=== PATIENT | female | born 1965 | race Two or more races ===

== ENCOUNTER 2017-01-09 20:22 | Emergency (ER) | payer OTHER ==
[~2017-01-09] VITALS: Ht 157.5 cm; Wt 119.3 kg
[2017-01-09] MEDS ORDERED: INSU100V28 SQ (20:48)
[2017-01-09] MEDS ORDERED: METO-302 PO (20:48)
[2017-01-09] MEDS ORDERED: ASPI81TA31 PO (20:48)
[2017-01-09] MEDS ORDERED: HYDROMORPHONE 1 MG/1 ML DISP.SYRIN IV ONE (21:15)
[2017-01-09] MEDS ORDERED: ONDANSETRON 4 MG/2 ML VIAL IV ONE (21:15)
[2017-01-09] MEDS ORDERED: IV NORMAL SALINE 1000 ML BAG IV ONE (21:15)
[2017-01-09 21:23] LABS: BASOPHILS % (AUTO) 0.3 % (0.0-2.0); EOSINOPHILS # (AUTO) 0.1 K/uL (0.0-0.7); EOSINOPHILS % (AUTO) 1.6 % (0.0-7.0); HEMATOCRIT 38.5 % (37.0-47.0); HEMOGLOBIN 12.9 g/dL (12.0-16.0); LYMPHOCYTES # (AUTO) 2.4 K/uL (0.8-4.8); LYMPHOCYTES % (AUTO) 35.1 % (20.5-51.5); MEAN CORPUSCULAR HEMOGLOBIN 27.8 uug (27.0-31.0); MEAN CORPUSCULAR HGB CONC 34 g/dL (32.0-37.0); MEAN CORPUSCULAR VOLUME 83.1 fL (81.0-99.0); MONOCYTES # (AUTO) 0.4 K/uL (0.1-1.30); MONOCYTES % (AUTO) 6.2 % (0.0-11.0); NEUTROPHILS # (AUTO) 3.8 K/uL (1.8-8.9); NEUTROPHILS % (AUTO) 56.8 % (38.5-71.5); PLATELET COUNT (AUTO) 224 K/uL (150-450); RED BLOOD CELL COUNT(AUTO) 4.64 MIL/uL (4.20-5.40); RED CELL DISTRIBUTION WIDTH 13.1 % (11.5-14.5); WHITE BLOOD COUNT (AUTO) 6.8 K/uL (4.0-11.2)
--- NOTE | 2017-01-09 21:23 | NUR ---
Py out of unit for ct scan
[2017-01-09] MEDS ORDERED: ONDANSETRON 4 MG/2 ML VIAL ONE (21:25)
[2017-01-09] MEDS ORDERED: HYDROMORPHONE 1 MG/1 ML DISP.SYRIN ONE (21:25)
[2017-01-09 21:30] LABS: *BILIRUBIN,URIN NEGATIVE (NEGATIVE); *BLOOD, URINE Trace-intact (NEGATIVE); *CLARITY,URINE SLIGHTLY CLOUDY (CLEAR); *COLOR,URINE YELLOW (YELLOW); *KETONES,URINE NEGATIVE (NEGATIVE); *PROTEIN,URINE NEGATIVE (NEGATIVE); *UROBILINOGEN,URINE 0.2 E.U./dl (NORMAL); LEUKOCYTE ESTERASE ,URINE NEGATIVE (NEGATIVE); UGLUCOSE TRACE (NEGATIVE)
[2017-01-09 21:34] LABS: NITRITE, URINE POSITIVE (NEGATIVE)
[2017-01-09 21:40] LABS: ALBUMIN 3.6 g/dL (3.4-5.0); BILIRUBIN,DIRECT 0.1 mg/dL (0.0-0.2); BILIRUBIN,TOTAL 0.3 mg/dL (0.2-1.0); CALCIUM 8.8 mg/dL (8.5-10.1); CREATININE 0.7 mg/dL (0.6-1.3); POTASSIUM 3.6 mmol/L (3.5-5.1); TOTAL PROTEIN, SERUM 7.5 g/dL (6.4-8.2)
[2017-01-09 21:42] LABS: BACTERIA,URINE MODERATE /HPF (NONE SEEN); RBC,URINE 0-3 /HPF (0-3); SQUAMOUS EPITHELIAL CELL,UR MODERATE /HPF (NONE SEEN)
--- NOTE | 2017-01-09 21:52 | NUR ---
Pt back from ct scan with no distress noted
--- NOTE | 2017-01-09 23:20 | NUR ---
IV removed. Catheter intact and site benign. Pressure and 4x4 gauze applied to site. No bleeding noted.
[2017-01-09 23:23] VITALS: BP 135/87
--- NOTE | 2017-01-09 23:24 | NUR ---
Patient discharged to home in stable conditon with daughter taking Pt home. Written and verbal after care instructions given. Patient/family member verbalizes understanding of instructions. Walked out of ER with steady gait
== END 2017-01-09 23:24 | disposition home or self-care (01) ==
LOC: ER 20:23
DX: N39.0 Urinary tract infection, site not specified (principal); R06.02 Shortness of breath; I10 Essential (primary) hypertension; E11.9 Type 2 diabetes mellitus without complications; Z79.4 Long term (current) use of insulin; Z79.82 Long term (current) use of aspirin
CPT/HCPCS: 36415; 71010; 74176; 80048; 80076; 81001; 83690; 84484; 85025; 85730; 93005; 96361; 96374; 96375; 99285; A4663; J1170; J2405; J7030; 70030-TC

== ENCOUNTER 2017-07-22 23:05 | Inpatient (IN) | payer MEDICARE, OTHER ==
[~2017-07-22] VITALS: Ht 157.5 cm; Wt 128.8 kg
[~2017-07-22 23:05] MED LIST: ASPI81TA31 PO; INSU100V28 SQ; METO-302 PO
--- NOTE | 2017-07-22 23:12 | NUR ---
DR. ALEJANDRO AT BEDSIDE FOR MSE.
[2017-07-22] MEDS ORDERED: NITROGLYCERIN OINT 1 GM PACKET TP ONE ×2 (23:30→23:36)
[2017-07-22] MEDS ORDERED: ASPIRIN 81 MG TAB.CHEW PO ONE (23:30)
[2017-07-22] MEDS ORDERED: NITROGLYCERIN 0.4 MG/TAB BOTTLE SL ONE ×2 (23:30→23:37)
[2017-07-22] MEDS ORDERED: ASPIRIN 81 MG TAB.CHEW ONE (23:36)
[2017-07-22 23:45] LABS: BASOPHILS % (AUTO) 0.4 % (0.0-2.0); EOSINOPHILS # (AUTO) 0.1 K/uL (0.0-0.7); EOSINOPHILS % (AUTO) 1.6 % (0.0-7.0); HEMATOCRIT 35.7 % (37-47); HEMOGLOBIN 11.7 G/DL (12.0-16.0); LYMPHOCYTES # (AUTO) 2.5 K/UL (0.8-4.8); LYMPHOCYTES % (AUTO) 38.6 % (20.5-51.5); MEAN CORPUSCULAR HEMOGLOBIN 26.8 UUG (27.0-31.0); MEAN CORPUSCULAR HGB CONC 33 g/dL (32.0-37.0); MEAN CORPUSCULAR VOLUME 81.4 FL (81.0-99.0); MONOCYTES # (AUTO) 0.4 K/UL (0.1-1.30); MONOCYTES % (AUTO) 5.7 % (0.0-11.0); NEUTROPHILS # (AUTO) 3.6 K/UL (1.8-8.9); NEUTROPHILS % (AUTO) 53.7 % (38.5-71.5); PLATELET COUNT (AUTO) 207 K/UL (150-450); RED BLOOD CELL COUNT(AUTO) 4.38 MIL/UL (4.2-5.4); WHITE BLOOD COUNT (AUTO) 6.6 K/UL (4.0-11.2)
--- NOTE | 2017-07-22 23:45 | NUR ---
2347- VERBAL ORDER FROM DR. ALEJANDRO TO GIVE NITRO 0.4MG.
--- NOTE | 2017-07-22 23:50 | NUR ---
PATIENT STILL C/O CHETS PAIN, DR. ALEJANDRO NOTIFIED. OK TO GIVE 3RD NITRO, ALONG WITH DILAUDID AND ZOFRAN IVP.
[2017-07-22 23:54] LABS: CREATININE 0.7 mg/dL (0.6-1.3); POTASSIUM 3.4 mmol/L (3.5-5.1)
[2017-07-23] MEDS ORDERED: HYDROMORPHONE 1 MG/1 ML DISP.SYRIN IV ONE
[2017-07-23] MEDS ORDERED: ONDANSETRON IV *ER 4 MG/2 ML VIAL IV ONE
[2017-07-23 00:07] LABS: BILIRUBIN,DIRECT 0.1 mg/dL (0.0-0.2); BILIRUBIN,TOTAL 0.3 mg/dL (0.2-1.0)
[2017-07-23] MEDS ORDERED: HYDROMORPHONE 1 MG/1 ML DISP.SYRIN ONE (00:08)
[2017-07-23] MEDS ORDERED: ONDANSETRON 4 MG/2 ML VIAL ONE (00:08)
--- NOTE | 2017-07-23 00:18 | NUR ---
EPIC CALLED. DR. SCHMITZ WILL BE PAGED.
[2017-07-23] MEDS ORDERED: BLOO-360 IN (00:21)
--- NOTE | 2017-07-23 00:26 | NUR ---
SHOWED DAUGHTER LIST OF MEDS SHE TOOK WHEN SHE WAS PREVIOUSLY HERE AND SHE STATED PT WAS STILL ON THE SAME MEDS
[2017-07-23] MEDS ORDERED: IV NORMAL SALINE 250 ML IV ONE (01:14)
[2017-07-23] MEDS ORDERED: NORMAL SALINE FLUSH 10 ML DISP.SYRIN ONE (01:14)
[2017-07-23] MEDS ORDERED: IOHEXOL 350 100 ML INFUS..BTL ONE (01:14)
[2017-07-23] MEDS ORDERED: Z GUARD REMEDY PASTE 57 GM TUBE TOP PRN (01:15)
[2017-07-23] MEDS ORDERED: INSULIN REGULAR, HUMAN 300 UNITS/3 ML VIAL SQ PRN (01:15)
[2017-07-23] MEDS ORDERED: ACETAMINOPHEN 325 MG TABLET PO PRN (01:15)
[2017-07-23] MEDS ORDERED: HYDROCODONE/APAP 5-325MG TABLET PO PRN (01:15)
[2017-07-23] MEDS ORDERED: ONDANSETRON 4 MG/2 ML VIAL IV PRN (01:15)
[2017-07-23] MEDS ORDERED: DEXTROSE 50% 50 ML DISP.SYRIN IV PRN (01:15)
[2017-07-23] MEDS ORDERED: MORPHINE SULFATE 2 MG/1 ML DISP.SYRIN IV PRN (01:15)
[2017-07-23] MEDS ORDERED: HYDROCODONE/APAP 10-325 MG TABLET PO PRN (01:15)
[2017-07-23] MEDS ORDERED: ENOXAPARIN SODIUM 40 MG/0.4 ML DISP.SYRIN SQ SCH ×2 (01:15→21:00)
[2017-07-23] MEDS ORDERED: MAGNESIUM HYDROXIDE 30 ML LIQUID UDC PO PRN (01:15)
--- NOTE | 2017-07-23 01:37 | NUR ---
PATIENT RETURNED FROM CT-SCAN.
--- NOTE | 2017-07-23 01:37 | NUR ---
Pt. admitted to TELE , under care of Dr. SCHMITZ Belongs List completed. FAMILY AT BEDSIDE.
--- NOTE | 2017-07-23 02:35 | NUR ---
patient admitted to room 225, alert,oriented,Mauritian speaking,accompany by daughter,tele monitor shown NSR,bp stable,no sob noted, o2 sat 96% in room air,patient denies chest pain or chest discomfort at present times,continue closely monitor.
[2017-07-23 03:03] VITALS: BP 119/62
[2017-07-23] MEDS ORDERED: ENOXAPARIN SODIUM 40 MG/0.4 ML DISP.SYRIN SQ ONE (03:31)
--- NOTE | 2017-07-23 06:00 | NUR ---
PATIENT SLEPT WELL THROUGH THE NIGHT, NSR ON MONITOR, NO CHEST PAIN REPORTED.
[2017-07-23] MEDS: BLOOD SUGAR DIAGNOSTIC 1 EACH STRIP VI SCH ×4 (07:14→20:16)
--- NOTE | 2017-07-23 08:00 | NUR ---
Plan of care discussed with patient and daughter at bedside re: notifying nursing for any c/o chest pain or any discomfort, fall precaution, and pain management. Pt and daughter agreeable with plan of care.
[2017-07-23] MEDS: METOPROLOL SUCCINATE XL 25 MG TAB.SR.24H PO SCH (08:54)
[2017-07-23] MEDS: ASPIRIN 81 MG TAB.CHEW PO SCH (08:54)
[2017-07-23 11:16] VITALS: BP 117/67
--- NOTE | 2017-07-23 12:00 | NUR ---
Grocery Packer here to see pt. Dr hathaway for heart cath at [facility]. Authorization for record release received from pt. Awaiting call back from Penny from [facility] medical records.
--- NOTE | 2017-07-23 14:00 | NUR ---
Heart Cath record received and copied for time clock mechanic and placed in chart.
[2017-07-23 15:24] VITALS: BP 144/72
[2017-07-23] MEDS: INSULIN REGULAR, HUMAN 300 UNIT/3 ML VIAL SQ PRN (16:53)
[2017-07-23] MEDS ORDERED: IV NS 1000 ML 1,000 ML IV PRN (17:30)
--- NOTE | 2017-07-23 18:15 | NUR ---
Plan of care effective. Pt denies any c/o chest pain in AM shift. No fall noted and denies any c/o pain. Call light is within reach.
[2017-07-23 20:00] VITALS: BP 144/78
[2017-07-23] MEDS ORDERED: ATORVASTATIN 10 MG TABLET PO SCH (21:00)
--- NOTE | 2017-07-23 21:58 | NUR ---
PATIENT WITH FAMILY AT BEDSIDE. COMFORTABLE NO CHEST PAIN OR ANY DISCOMFORTS. NSR ON TELE. REMOVED RIGHT FOREARM IV CATH, REINSERTED OVER RIGHT HAND AND STARTED NS AT 125 ML/HR. DAUGHTER IS STAYING AT BEDSIDE KACIE, WAIVER FOR HOSPITAL VISITOR EXTENDED STAY SIGNED. OTHERWISE VITAL SIGNS ARE STABLE. CALL LIGHT WITHIN REACH.
[2017-07-24 00:20] VITALS: BP 134/70
[2017-07-24 04:00] VITALS: BP 139/69
--- NOTE | 2017-07-24 06:07 | NUR ---
SLEPT GOOD THROUGH THE NIGHT. DENIES CHEST PAIN. CALL LIGHT WITHIN REACH.
[2017-07-24] MEDS: BLOOD SUGAR DIAGNOSTIC 1 EACH STRIP VI SCH ×2 (06:44→12:16)
[2017-07-24 06:50] LABS: BASOPHILS % (AUTO) 0.4 % (0.0-2.0); EOSINOPHILS # (AUTO) 0.1 K/uL (0.0-0.7); EOSINOPHILS % (AUTO) 2.3 % (0.0-7.0); HEMATOCRIT 33.1 % (37-47); LYMPHOCYTES # (AUTO) 1.6 K/UL (0.8-4.8); LYMPHOCYTES % (AUTO) 37.8 % (20.5-51.5); MEAN CORPUSCULAR HEMOGLOBIN 27.7 UUG (27.0-31.0); MEAN CORPUSCULAR HGB CONC 33 g/dL (32.0-37.0); MEAN CORPUSCULAR VOLUME 83.3 FL (81.0-99.0); MONOCYTES # (AUTO) 0.2 K/UL (0.1-1.30); NEUTROPHILS # (AUTO) 2.4 K/UL (1.8-8.9); NEUTROPHILS % (AUTO) 54.5 % (38.5-71.5); PLATELET COUNT (AUTO) 170 K/UL (150-450); RED BLOOD CELL COUNT(AUTO) 3.98 MIL/UL (4.2-5.4); WHITE BLOOD COUNT (AUTO) 4.4 K/UL (4.0-11.2)
[2017-07-24 09:23] LABS: BILIRUBIN,TOTAL 0.4 mg/dL (0.2-1.0); CREATININE 0.6 mg/dL (0.6-1.3); MAGNESIUM 1.9 mg/dL (1.8-2.4); PHOSPHOROUS 4.2 mg/dL (2.5-4.9); POTASSIUM 3.7 mmol/L (3.5-5.1); TOTAL PROTEIN, SERUM 6.4 g/dL (6.4-8.2)
[2017-07-24] MEDS: ASPIRIN 81 MG TAB.CHEW PO SCH (09:24)
[2017-07-24] MEDS: METOPROLOL SUCCINATE XL 25 MG TAB.SR.24H PO SCH (09:24)
[2017-07-24] MEDS ORDERED: ATOR10TA PO (10:33)
[2017-07-24 11:47] VITALS: BP 131/68
[2017-07-24] MEDS: INSULIN REGULAR, HUMAN 300 UNIT/3 ML VIAL SQ PRN (12:16)
--- NOTE | 2017-07-24 12:40 | NUR ---
pt seen on rounding. pt is stable. no signs of acute distress. bp elevated and given bp meds as prescribed. pt continues to tolerate room air. blood sugar stable. pt continues to obey commands. pt is alert and oriented. pt is afebrile. complaints of no pain . will continue to reassess through shift.
--- NOTE | 2017-07-24 14:34 | NUR ---
pt dicharged at 1400. pt given discharge instructions along with discharge summary papers. pt verbalizes understanding. pt signed discharged summary. pt also given exitcare instructions such as smoking cessation chest pain and dash eating plan. pt verbalizes understanding. pt brought no belonings list. list signed and placed in chart. pt given prescriptions to be picked up in [facility] in [facility]. pt iv site removed. no signs of infection. no wound pictures were taken because there were no wounds. pt vitals stable. no sob or distress noted. pt left with daughter.
== END 2017-07-24 13:45 | disposition home or self-care (01) | DRG 438 ==
LOC: ER 23:05 → TELE 07-23 02:28
PROVIDERS: ADMIT Internal Medicine; ATTEND Internal Medicine
DX: K85.10 Biliary acute pancreatitis without necrosis or infection (principal); E43 Unspecified severe protein-calorie malnutrition; Z68.43 Body mass index [BMI] 50.0-59.9, adult; E66.01 Morbid (severe) obesity due to excess calories; E11.9 Type 2 diabetes mellitus without complications; E78.00 Pure hypercholesterolemia, unspecified; I10 Essential (primary) hypertension; Z79.4 Long term (current) use of insulin; Z90.710 Acquired absence of both cervix and uterus; Z98.84 Bariatric surgery status; R07.89 Other chest pain
CPT/HCPCS: 36415; 70030-TC; 71010; 71275; 83690; 83735; 84100; 85025; 93005; 93307; A4663; J1170; J1650; J1815; J2405; J3490; J7030; J7050; Q9967

== ENCOUNTER 2017-12-04 16:35 | Emergency (ER) | payer MEDICARE, OTHER ==
[~2017-12-04] VITALS: Ht 162.6 cm; Wt 124.7 kg
[~2017-12-04 16:35] MED LIST changes: +ATOR10TA PO; +BLOO-360 IN; -METO-302 PO; +METO-356 PO
[2017-12-04] MEDS ORDERED: ONDANSETRON ODT 4 MG TAB.RAPDIS SL ONE (19:00)
[2017-12-04] MEDS ORDERED: BENZONATATE 100 MG CAPSULE PO ONE (19:00)
[2017-12-04] MEDS ORDERED: BENZONATATE 100 MG CAPSULE ONE (19:04)
[2017-12-04] MEDS ORDERED: ONDANSETRON ODT 4 MG TAB.RAPDIS ONE (19:04)
== END 2017-12-04 19:07 | disposition home or self-care (01) ==
LOC: ER 16:37
DX: J20.8 Acute bronchitis due to other specified organisms (principal); B96.89 Other specified bacterial agents as the cause of diseases classified elsewhere; E78.00 Pure hypercholesterolemia, unspecified; I10 Essential (primary) hypertension; E11.9 Type 2 diabetes mellitus without complications; Z90.49 Acquired absence of other specified parts of digestive tract; Z90.710 Acquired absence of both cervix and uterus; Z79.82 Long term (current) use of aspirin; Z79.4 Long term (current) use of insulin; Z79.899 Other long term (current) drug therapy
CPT/HCPCS: 99283; A4663; Q0162

== ENCOUNTER 2018-08-02 22:00 | Emergency (ER) | payer MEDICARE, OTHER ==
[~2018-08-02] VITALS: Ht 165.1 cm; Wt 127.0 kg
--- NOTE | 2018-08-02 22:17 | NUR ---
PT A/OX4, RESPONSIVE TO VERBAL AND TACTILE STIMULI. PT C/O RUQ AND LUQ ABD PAIN THAT STARTED 2 DAYS AGO, NO PROVOKING FACTOR, SHARP IN QUALITY, DOES NOT RADIATE, 9/10, CONSTANT. VSS. ABD NON-DISTENDED IN APPEARANCE, ABD SOUNDS ACTIVE IN ALL QUADRANTS, SOFT ON PALPATION. SECONDARY COMPLAINT: NAUSEA PT DENIES C/P, SOB, VOMIT, DIARRHEA, DIZZINESS, HEADACHE. FAMILY AT BEDSIDE.
--- NOTE | 2018-08-02 22:27 | NUR ---
KORI HOLLAND AT BEDSIDE FOR MSE.
[2018-08-02] MEDS ORDERED: ONDANSETRON 4 MG/2 ML VIAL IV ONE (22:45)
[2018-08-02] MEDS ORDERED: MORPHINE SULFATE 2 MG/1 ML DISP.SYRIN IV ONE (22:45)
[2018-08-02] MEDS ORDERED: ONDANSETRON 4 MG/2 ML VIAL ONE (22:54)
[2018-08-02] MEDS ORDERED: MORPHINE SULFATE 4 MG/1 ML DISP.SYRIN ONE (22:54)
--- NOTE | 2018-08-02 22:57 | NUR ---
PT TAKEN TO RADIOLOGY FOR CT SCAN.
[2018-08-02 22:58] LABS: BASOPHILS % (AUTO) 0.3 % (0.0-2.0); EOSINOPHILS # (AUTO) 0.1 K/uL (0.0-0.7); EOSINOPHILS % (AUTO) 1.3 % (0.0-7.0); HEMATOCRIT 34.5 % (31.2-41.9); HEMOGLOBIN 11.4 g/dL (10.9-14.3); LYMPHOCYTES # (AUTO) 2.1 K/uL (20.0-40.0); LYMPHOCYTES % (AUTO) 30.9 % (20.5-51.5); MEAN CORPUSCULAR HEMOGLOBIN 26.8 uug (24.7-32.8); MEAN CORPUSCULAR HGB CONC 33 g/dL (32.3-35.6); MEAN CORPUSCULAR VOLUME 81.3 fL (75.5-95.3); MONOCYTES # (AUTO) 0.3 K/uL (2.0-10.0); NEUTROPHILS # (AUTO) 4.3 K/uL (1.8-8.9); NEUTROPHILS % (AUTO) 63.5 % (38.5-71.5); PLATELET COUNT (AUTO) 201 K/uL (179-408); RED BLOOD CELL COUNT(AUTO) 4.24 MIL/uL (3.63-4.92); WHITE BLOOD COUNT (AUTO) 6.7 K/uL (3.8-11.8)
[2018-08-02 23:08] LABS: CREATININE 0.8 mg/dL (0.6-1.3); POTASSIUM 3.7 mmol/L (3.5-5.1)
--- NOTE | 2018-08-02 23:11 | NUR ---
PT BACK IN DEPARTMENT FROM RADIOLOGY.
[2018-08-02 23:14] LABS: BILIRUBIN,DIRECT 0.1 mg/dL (0.0-0.2); BILIRUBIN,TOTAL 0.3 mg/dL (0.2-1.0)
[2018-08-02 23:34] LABS: *BILIRUBIN,URIN NEGATIVE (NEGATIVE); *BLOOD, URINE Trace-lysed (NEGATIVE); *CLARITY,URINE CLEAR (CLEAR); *COLOR,URINE YELLOW (YELLOW); *KETONES,URINE NEGATIVE (NEGATIVE); *PROTEIN,URINE NEGATIVE (NEGATIVE); *UROBILINOGEN,URINE 0.2 E.U./dl (NORMAL); LEUKOCYTE ESTERASE ,URINE NEGATIVE (NEGATIVE); NITRITE, URINE NEGATIVE (NEGATIVE); UGLUCOSE NEGATIVE (NEGATIVE)
--- NOTE | 2018-08-02 23:40 | NUR ---
KORI HOLLAND AT BEDSIDE FOR PT UPDATE.
[2018-08-02 23:41] LABS: BACTERIA,URINE MANY /HPF (NONE SEEN); RBC,URINE 0-3 /HPF (0-3); SQUAMOUS EPITHELIAL CELL,UR FEW /HPF (NONE SEEN)
--- NOTE | 2018-08-02 23:50 | NUR ---
Patient discharged to home in stable conditon. Written and verbal after care instructions given. Patient verbalizes understanding of instructions. D/C W/ PRESCRIPTION. ALL BELONGINGS W/ PT. PT SELF-AMBULATED WITHOUT DIFFICULTY. 20G L AC IV ACCESS REMOVED PRIOR TO D/C - INNER CANNULA INTACT.
[2018-08-02 23:52] VITALS: BP 150/76
== END 2018-08-02 23:53 | disposition home or self-care (01) ==
LOC: ER 22:00
DX: R10.84 Generalized abdominal pain (principal); I16.0 Hypertensive urgency; E78.00 Pure hypercholesterolemia, unspecified; E11.9 Type 2 diabetes mellitus without complications; Z90.49 Acquired absence of other specified parts of digestive tract; Z90.710 Acquired absence of both cervix and uterus; Z79.82 Long term (current) use of aspirin; Z79.4 Long term (current) use of insulin
CPT/HCPCS: 36415; 74176; 80048; 80076; 81001; 83690; 85025; 96374 ×2; 99285; J2270; J2405; A4663